=== PATIENT | female | born 1955 | race Caucasian/White ===

== ENCOUNTER 2019-12-11 17:13 | Emergency (ER) | payer OTHER ==
[~2019-12-11] VITALS: Ht 162.6 cm; Wt 51.2 kg
[2019-12-11 18:03] LABS: BASOPHILS % (AUTO) 0.4 % (0-1); EOSINOPHILS # (AUTO) 0.1 X10'3 (0-0.9); EOSINOPHILS % (AUTO) 0.9 % (0-6); HEMOGLOBIN 14.6 g/dl (12.0-16.0); LYMPHOCYTES # (AUTO) 2.2 X10'3 (1.1-4.8); MEAN CORPUSCULAR HEMOGLOBIN 30.3 PG (27.0-31.0); MEAN CORPUSCULAR VOLUME 89.1 FL (78-98); MONOCYTES # (AUTO) 0.5 X10'3 (0-0.9); MONOCYTES % (AUTO) 8.4 % (2-12); NEUTROPHILS # (AUTO) 3.1 X10'3 (1.8-7.7); NEUTROPHILS % (AUTO) 53.3 % (42-75); PLATELET COUNT 202 X10'3 (140-440); RED BLOOD COUNT 4.83 X10'6 (4.20-5.60); WHITE BLOOD COUNT 5.8 X10'3 (4.5-11.0)
[2019-12-11 18:11] LABS: ANION GAP 7 (8-16); BILIRUBIN,TOTAL 0.2 MG/DL (0.1-1.0); BLOOD UREA NITROGEN 13 MG/DL (7-18); BUN/CREATININE RATIO 13.3 (6.6-38.0); CALCIUM 9.5 MG/DL (8.5-10.1); CHLORIDE 104 MMOL/L (99-107); CREATININE 0.98 MG/DL (0.40-0.90); GLUCOSE 93 MG/DL (70-104); POTASSIUM 3.8 MMOL/L (3.5-5.1); SODIUM 141 MMOL/L (135-145); TOTAL CARBON DIOXIDE 30.2 MMOL/L (24-32); TOTAL PROTEIN 8.1 G/DL (6.4-8.2); eGFR 57 ML/MIN
[2019-12-11 18:12] LABS: ALANINE AMINOTRANSFERASE 17 U/L (12-78); ALKALINE PHOSPHATASE 58 IU/L (46-116); ASPARTATE AMINO TRANSFERASE 16 U/L (10-37)
[2019-12-11 20:04] LABS: PARTIAL THROMBOPLASTIN TIME 26 SECONDS (22-32)
[2019-12-11] MEDS ORDERED: EPIN0.3P3 IM (21:00)
[2019-12-11 21:23] VITALS: BP 122/63
== END 2019-12-11 21:32 | disposition home or self-care (01) ==
LOC: ER 17:14
DX: R06.02 Shortness of breath (principal); T78.1XXA Other adverse food reactions, not elsewhere classified, initial encounter; J30.1 Allergic rhinitis due to pollen; J30.81 Allergic rhinitis due to animal (cat) (dog) hair and dander; R42 Dizziness and giddiness; Z79.899 Other long term (current) drug therapy; Y92.89 Other specified places as the place of occurrence of the external cause; X58.XXXA Exposure to other specified factors, initial encounter
CPT/HCPCS: 36415; 71045; 80053; 84484; 85025; 85610; 85730; 93005; 99285

== ENCOUNTER 2022-12-13 11:35 | Emergency (ER) | payer MEDICARE, OTHER ==
[~2022-12-13] VITALS: Ht 162.6 cm; Wt 59.1 kg
[~2022-12-13 11:35] MED LIST: EPIN0.3P3 IM
[2022-12-13 12:11] LABS: BASOPHILS % (AUTO) 0.4 % (0-1); EOSINOPHILS % (AUTO) 0.2 % (0-6); HEMATOCRIT 43.8 % (35.0-45.0); HEMOGLOBIN 14.5 g/dl (12.0-16.0); LYMPHOCYTES # (AUTO) 1.6 X10'3 (1.1-4.8); LYMPHOCYTES % (AUTO) 33.6 % (21-51); MEAN CORPUSCULAR HGB CONC 33.2 g/dL (33.0-36.5); MEAN CORPUSCULAR VOLUME 90.2 FL (78-98); MEAN PLATELET VOLUME 9.8 FL (7.4-10.4); MONOCYTES # (AUTO) 0.4 X10'3 (0-0.9); MONOCYTES % (AUTO) 8.2 % (2-12); NEUTROPHILS # (AUTO) 2.8 X10'3 (1.8-7.7); NEUTROPHILS % (AUTO) 57.6 % (42-75); PLATELET COUNT 221 X10'3 (140-440); RED BLOOD COUNT 4.85 X10'6 (4.20-5.60); RED CELL DISTRIBUTION WIDTH 14.1 % (11.5-14.5); WHITE BLOOD COUNT 4.8 X10'3 (4.5-11.0)
[2022-12-13 12:19] LABS: ALANINE AMINOTRANSFERASE 12 U/L (12-78); ALBUMIN/GLOBULIN RATIO 1.1 (1.1-1.5); ALKALINE PHOSPHATASE 83 IU/L (46-116); ANION GAP 6 (8-16); ASPARTATE AMINO TRANSFERASE 13 U/L (10-37); BILIRUBIN,TOTAL 0.5 MG/DL (0.1-1.0); BLOOD UREA NITROGEN 11 MG/DL (7-18); BUN/CREATININE RATIO 15.7 (6.6-38.0); CALCIUM 9.6 MG/DL (8.5-10.1); CHLORIDE 103 MMOL/L (99-107); GLUCOSE 98 MG/DL (70-104); MAGNESIUM 2.4 MG/DL (1.5-2.4); POTASSIUM 3.6 MMOL/L (3.5-5.1); SODIUM 139 MMOL/L (135-145); TOTAL CARBON DIOXIDE 29.8 MMOL/L (24-32); TOTAL PROTEIN 7.8 G/DL (6.4-8.2); eGFR 84 ML/MIN
[2022-12-13] MEDS ORDERED: ibuprofen 200mg tablet PO ONE (15:30)
[2022-12-13] MEDS ORDERED: potassium Cl 20 mEq SR tablet PO STA (15:30)
[2022-12-13 17:07] VITALS: BP 139/72
== END 2022-12-13 17:09 | disposition home or self-care (01) ==
LOC: ER 11:35
DX: R51.9 Headache, unspecified (principal); R20.0 Anesthesia of skin; R42 Dizziness and giddiness; E03.9 Hypothyroidism, unspecified; M79.7 Fibromyalgia; Z72.89 Other problems related to lifestyle; Z79.899 Other long term (current) drug therapy
CPT/HCPCS: 36415; 70450; 71045; 80053; 82948; 83735; 83880; 84484; 85025; 93005; 99285

== ENCOUNTER 2023-05-22 11:37 | Outpatient (CLI) | payer MEDICARE, OTHER ==
[2023-05-22 12:14] LABS: BASOPHILS % (AUTO) 0.3 % (0-1); EOSINOPHILS # (AUTO) 0.1 X10'3 (0-0.9); HEMATOCRIT 43.9 % (35.0-45.0); HEMOGLOBIN 14.7 g/dl (12.0-16.0); LYMPHOCYTES # (AUTO) 2.2 X10'3 (1.1-4.8); LYMPHOCYTES % (AUTO) 35.6 % (21-51); MEAN CORPUSCULAR HEMOGLOBIN 30.1 PG (27.0-31.0); MEAN CORPUSCULAR HGB CONC 33.4 g/dL (33.0-36.5); MEAN CORPUSCULAR VOLUME 89.9 FL (78-98); MEAN PLATELET VOLUME 8.8 FL (7.4-10.4); MONOCYTES # (AUTO) 0.5 X10'3 (0-0.9); MONOCYTES % (AUTO) 7.7 % (2-12); NEUTROPHILS # (AUTO) 3.5 X10'3 (1.8-7.7); NEUTROPHILS % (AUTO) 55.4 % (42-75); PLATELET COUNT 313 X10'3 (140-440); RED BLOOD COUNT 4.88 X10'6 (4.20-5.60); WHITE BLOOD COUNT 6.3 X10'3 (4.5-11.0)
[2023-05-22 12:24] LABS: CLARITY,URINE CLOUDY (Clear); COLOR,URINE YELLOW (Yellow); GLUCOSE, URINE NEGATIVE (Neg); KETONES,URINE NEGATIVE (Neg); LEUKOCYTE ESTERASE ,URINE NEGATIVE (Neg); NITRITES, URINE NEGATIVE (Neg); OCCULT BLOOD,URINE NEGATIVE (Neg); PROTEIN,URINE NEGATIVE (Neg); UROBILINOGEN,URINE 0.2 E.U/dL (0.2-1.0)
[2023-05-22 12:27] LABS: UA COLLECTION TYPE CLN CATCH MIDSTREAM
[2023-05-22 12:38] LABS: MUCUS STRANDS MANY /LPF (Neg); SQUAMOUS EPITHELIAL CELL,UR MANY /LPF (FEW)
[2023-05-22 12:39] LABS: BACTERIA,URINE 1+ /HPF (Neg); RBC,URINE 0-2 /HPF (0-2); WBC,URINE 0-4 /HPF (0-4)
[2023-05-22 12:45] LABS: ALANINE AMINOTRANSFERASE 17 U/L (12-78); ALBUMIN 3.5 G/DL (3.4-5.0); ALBUMIN/GLOBULIN RATIO 0.8 (1.1-1.5); ALKALINE PHOSPHATASE 87 IU/L (46-116); ANION GAP 4 (8-16); ASPARTATE AMINO TRANSFERASE 12 U/L (10-37); BILIRUBIN,TOTAL 0.3 MG/DL (0.1-1.0); BLOOD UREA NITROGEN 13 MG/DL (7-18); BUN/CREATININE RATIO 16.7 (10.0-20.0); CALCIUM 9.2 MG/DL (8.5-10.1); CHLORIDE 102 MMOL/L (99-107); CHOL/HDL RATIO 4.5 (0.00-4.99); CHOLESTEROL 246 MG/DL (0-200); CREATININE 0.78 MG/DL (0.40-0.90); GLUCOSE 101 MG/DL (70-104); HDL CHOLESTEROL 55 MG/DL (35-60); LDL CHOLESTEROL 147 MG/DL (50-100); POTASSIUM 3.8 MMOL/L (3.5-5.1); SODIUM 138 MMOL/L (135-145); TOTAL CARBON DIOXIDE 31.6 MMOL/L (24-32); TOTAL PROTEIN 7.7 G/DL (6.4-8.2); TRIGLYCERIDES 132 MG/DL (20-135); eGFR 74 ML/MIN
[2023-05-22 12:53] LABS: RHEUM FACTOR QUAL REFLEX TITER NEGATIVE (Neg)
[2023-05-22] MEDS ORDERED: GADOTERATE MEGLUMINE 7.5 MMOL/15 ML VIAL IV ONE (14:28)
== END 2023-05-22 23:59 | disposition home or self-care (01) ==
LOC: RAD 11:37
PROVIDERS: ATTEND Family Medicine
DX: R41.0 Disorientation, unspecified (principal); H54.7 Unspecified visual loss; R51.9 Headache, unspecified; R53.1 Weakness; R53.83 Other fatigue; R15.9 Full incontinence of feces; I10 Essential (primary) hypertension
CPT/HCPCS: 36415; 70553; 80053; 80061; 81001; 84439; 84443; 84550; 85025; 85651; 86038; 86430; A9575

== ENCOUNTER 2023-05-24 11:46 | Outpatient (CLI) | payer MEDICARE, OTHER | END 2023-05-24 23:59 | disposition home or self-care (01) | LOC: RAD 11:46 | PROVIDERS: ATTEND Family Medicine | DX: M47.22 Other spondylosis with radiculopathy, cervical region (principal); M48.02 Spinal stenosis, cervical region; M47.816 Spondylosis without myelopathy or radiculopathy, lumbar region; M48.061 Spinal stenosis, lumbar region without neurogenic claudication; M51.26 Other intervertebral disc displacement, lumbar region; R15.9 Full incontinence of feces | CPT/HCPCS: 72141; 72146; 72148 ==

== ENCOUNTER 2024-06-20 09:59 | Outpatient (CLI) | payer MEDICARE, OTHER ==
[2024-06-20 10:47] VITALS: PULSE 72; RESP 16; O2SAT 98
== END 2024-06-20 23:59 | disposition home or self-care (01) ==
LOC: RT 09:59
PROVIDERS: ATTEND Family Medicine
DX: J45.991 Cough variant asthma (principal)
CPT/HCPCS: 94010; 94729; 94760; J7030

== ENCOUNTER 2025-01-15 11:43 | Outpatient (CLI) | payer MEDICARE, OTHER | END 2025-01-15 23:59 | disposition home or self-care (01) | LOC: MRI02 11:43 | PROVIDERS: ATTEND Anesthesiology | DX: M51.16 Intervertebral disc disorders with radiculopathy, lumbar region (principal); M43.16 Spondylolisthesis, lumbar region; M48.061 Spinal stenosis, lumbar region without neurogenic claudication; M47.26 Other spondylosis with radiculopathy, lumbar region | CPT/HCPCS: 72148 ==

== ENCOUNTER 2025-06-01 15:22 | Emergency (ER) | payer MEDICARE, OTHER ==
[~2025-06-01] VITALS: Ht 162.6 cm; Wt 63.6 kg
--- NOTE | 2025-06-01 15:32 | ELECTROCARDIOGRAPH REPORT ---
[facility] Test Date: 2025-06-01 Test Time: 15:30:26 Pat Name: OSMAN NAGEL Department: EMERGENCY ROOM Room: Gender: F Senior [employer]: PM : 1955 Requested By: SANDOR WYNN Order Number: [id number] Reading MD: Dr. Sandor Wynn Measurements Intervals Erving Rate: 85 P: 83 NH: 114 QRS: 78 QRSD: 86 T: 55 QT: 357 QTc: 425 Interpretive Statements Sinus rhythm Borderline short NH interval Probable left atrial enlargement Electronically Signed On 06-01-2025 16:50:[address] Sandor Wynn Please click the below link to view image of tracing.
[2025-06-01 15:36] VITALS: TEMP 98.4
--- NOTE | 2025-06-01 16:10 | RADIOLOGY REPORT ---
CHEST RADIOGRAPH Indication: CP Technique: Single frontal view of the chest was obtained Comparison: None FINDINGS: Lines and Tubes: None Lungs: No focal consolidation. Surgical clips are noted over the right infrahilar region. Linear dens ities of the left lower lung zone which may represent atelectasis. Pleura: No effusion. No pneumothorax. Cardiomediastinal contours: Unremarkable Bones: No acute osseous abnormality. IMPRESSION: Left lower lung zone atelectasis. Otherwise, No acute cardiopulmonary disease.
[2025-06-01 17:03] LABS: CREATININE 0.76 MG/DL (0.40-0.90); PRO BRAIN NATRIURETIC PEPTIDE 145 PG/ML (0-125); TOTAL CARBON DIOXIDE 25.9 MMOL/L (24-32); eCRCL 61 ML/MIN; eGFR 76 ML/MIN
--- NOTE | 2025-06-01 17:12 | Physician Documentation ---
History of Present Illness ~ Chief Complaint: Chest Pain Stated Complaint: CP Time Seen by MD: 19:34 HPI Patient is a 69-year-old female that presents to the emergency department for evaluation of chest discomfort that starts in her midsternal chest radiates round the right side into her back says she has some discomfort in her left shoulder also patient reports this has been ongoing for several weeks to a month patient reports that she also has POTS and she feels like there may be a connection to that. Takes her vital signs at home regularly is concerned that there have been some abnormalities in her vital signs on her phone. Patient reports that she has had low blood pressure readings and low heart rate readings periodically on her phone she finds this very concerning. Reports significant past medical history of POTS. Medication Reconciliation Allergies: Uncoded Allergies: AVALOX (Adverse Reaction, Severe, Fever, edema, tachycardia, 12/11/19) WHEAT, CORN (Adverse Reaction, Intermediate, diarrhea, cramping, joints swell, 12/13/22) Scheduled Epinephrine (Epipen 2-Vicente), 1 SYR IM ONCE Past Medical History Past Medical History: Hypothyroidism, Fibromyalgia Past Surgical History: no surgical history Alcohol Use: Occasionally Drug Use: none Lives with: Spouse Lives In: Home Review of Systems ROS As stated above in the HPI, otherwise all systems are reviewed and negative. Physical Exam Vital Signs: Temperature: 98.4, Source: Temporal, Heart Rate: 98, Respiratory Rate: 18, BP: 124/74, Pulse Oximetry: 99, Weight: 63.640 Oxygen Flow Rate: 0 Physical Exam VITALS: Reviewed and as above. GENERAL: Alert, no apparent distress. HEENT: Normocephalic, atraumatic, PERRL, EOMI, dry mucosa, no erythema RESPIRATORY: Lungs clear, normal breath sounds, no respiratory distress. CHEST: No accessory muscle use, no retractions CV: Regular rate, rhythm, no edema, no murmur, No: JVD GI: Soft, non-tender, bowels sounds present, no rebound, guarding, or rigidity BACK: No CVA tenderness, or swelling MUSCULOSKELETAL No deformities, no edema SKIN: Warm and dry, no rash NEURO: Oriented x4, No motor or sensory deficit PSYCH: Normal mood and affect, no agitation Progress Results/Orders Results/Orders Vital Signs 06/01/25 15:36 Temp 98.4 Pulse 98 Resp 18 B/P (MAP) 124/74 Pulse Ox 99 O2 Flow Rate 0 Laboratory Tests Test 06/01/25 16:25 06/01/25 17:42 06/01/25 18:46 White Blood Count 6.0 Red Blood Count 4.59 Hemoglobin 13.8 Hematocrit 41.0 Mean Corpuscular Volume 89.3 Mean Corpuscular Hemoglobin 30.1 Mean Corpuscular Hemoglobin Concent 33.7 Red Cell Distribution Width 13.6 Platelet Count 202 Mean Platelet Volume 10.6 H Neutrophils (%) (Auto) 54.9 Lymphocytes (%) (Auto) 35.5 Monocytes (%) (Auto) 8.7 Eosinophils (%) (Auto) 0.6 Basophils (%) (Auto) 0.3 Neutrophils # (Auto) 3.3 Lymphocytes # (Auto) 2.1 Monocytes # (Auto) 0.5 Eosinophils # (Auto) 0.0 Basophils # (Auto) 0.0 CBC Comment Platelet Estimate Normal Large Platelets Few Red Blood Cell Morphology Normal Basophilic Stippling Sodium Level 141 Potassium Level 3.8 Chloride Level 105 Carbon Dioxide Level 25.9 Anion Gap 10 Blood Urea Nitrogen 16 Creatinine 0.76 Estimated GFR/1.73 m2 76 BUN/Creatinine Ratio 21.1 H Glucose Level 109 H Calcium Level 9.5 Troponin I High Sensitivity < 4 L 5 4 Troponin I High Sens Percent Delta 20 Troponin I Hi Sens Absolute Change -1 Pro-B-Type Natriuretic Peptide 145 H Albumin 3.7 Chemistry Comments Medical Decision Making Findings Exam without evidence of volume overload so doubt heart failure. EKG without signs of active ischemia. Given the timing of pain to ER presentation, single troponin negative was so doubt NSTEMI. Presentation and symptoms not consistent with acute PE, pneumothorax (not visualized on chest xr), thoracic aortic dissection, pericarditis, tamponade, pneumonia (no infectious symptoms, clear chest xr), myocarditis (no recent illness, neg trop). so plan to discharge patient home with PMD follow up for additional diagnostics that are not done in the emergency department i.e. full thyroid panel hormone levels and placement of a ZIO patch for additional data collection. Differential Dx:Considerations: Include: angina, aortic dissection, chest wall pain, cholelithiasis, CHF, costochondritis, esophageal reflux/spasm, gastritis, herpes zoster, myocardial infarction, pericarditis, pleuritis, pancreatitis, pne umonia, pneumothorax, pulmonary embolus, other Departure Disposition: HOME / SELF CARE / HOMELESS Impression: Primary Impression: Chest wall pain Condition: Stable Discharge Instructions: Chest Wall Pain Additional Instructions: Exam without evidence of volume overload so doubt heart failure. EKG without signs of active ischemia. Given the timing of pain to ER presentation, single troponin negative was so doubt NSTEMI. Presentation and symptoms not consistent with acute PE, pneumothorax (not visualized on chest xr), thoracic aortic dissection, pericarditis, tamponade, pneumonia (no infectious symptoms, clear chest xr), myocarditis (no recent illness, neg trop). so plan to discharge patient home with PMD follow up for additional diagnostics that are not done in the emergency department i.e. full thyroid panel hormone levels and placement of a ZIO patch for additional data collection. Referrals: NO PRIMARY CARE PROVIDER (PCP) Education Educated: Patient Educated regarding: diagnosis, treatment, need for follow up Signature Scribe Signature: A Attestation: Scribed for Demetrius Birch MD by MOLLY Beach . 06/01/25 19:40 DANILO CH Jun 01, 2025 17:12
[2025-06-01 17:14] LABS: MEAN PLATELET VOLUME 10.6 FL (7.4-10.4); RED CELL DISTRIBUTION WIDTH 13.6 % (11.5-14.5)
[2025-06-01 17:57] LABS: PLATELET ESTIMATE NORMAL
[2025-06-01 17:58] LABS: LARGE PLATELETS FEW
[2025-06-01 19:37] VITALS: BP 157/88; PULSE 61; RESP 15; O2SAT 99
== END 2025-06-01 19:57 | disposition home or self-care (01) ==
LOC: ER 15:23
DX: R07.89 Other chest pain (principal); R06.02 Shortness of breath; E03.9 Hypothyroidism, unspecified; M79.7 Fibromyalgia
CPT/HCPCS: 36415; 71045; 80048; 83880; 84484; 85008; 85025; 93005; 99285

== ENCOUNTER 2025-06-23 08:48 | Outpatient (CLI) | payer MEDICARE, OTHER ==
[2025-06-23] VITALS (12 sets, daily range): BP systolic 79–131; BP diastolic 42–98; PULSE 57–82
== END 2025-06-23 23:59 | disposition home or self-care (01) ==
LOC: CARD DIAG 08:48
PROVIDERS: ATTEND Physician Assistant
DX: I49.9 Cardiac arrhythmia, unspecified (principal)
CPT/HCPCS: 93660